=== PATIENT | female | born 1975 | race Caucasian/White ===

== ENCOUNTER 2017-06-20 12:16 | Emergency (ER) | payer OTHER ==
[~2017-06-20] VITALS: Ht 177.8 cm; Wt 59.0 kg
[~2017-06-20 12:16] MED LIST: APAP500 PO; BENADRYL25 MG PO; CARISOPRODOL 3350 MG PO; CIPROFLOXACIN500 M1 PO; CLEOCIN HCL150 MG PO; CLINDAMYCIN; COLACE100 MG PO; DARVOCET-N 1001 EAC1 PO; DILAUDID 4 MG TA4 M1 PO; ELMIRON; ELMIRON 100 MG PO; ELMIRON PO; FLUOXETINE HCL40 MG PO; HYCET 7.5 MG-3473 ML PO; IMIPRAMINE HCL25 MG PO; LORTAB 5 MG/5001 TA1 PO; MEDROL DOSPAK21 TAB PO; MIRALAX255 GM PO; MULTIPLE VITAM1 EAC3 PO; NORCO 5-325 TA1 EACH PO; OXYCODONE HCL 55 MG PO; OXYCONTIN CR 1010 M1 PO; PERCOCET 5-3251 EACH PO; PERCOCET 7.5-31 EACH PO; PHENERGAN 25 MG25 M1 PO; PREDNISONE 20 M20 MG PO; PREDNISONE50 MG PO; PROZAC20 MG; SENNA LAXATIVE25 MG PO; TRAMADOL 50 MG50 MG PO; VALIUM5 MG PO; VISTARIL 25 MG25 M1 OR; ZANTAC150 M2 PO; ZOFRAN ODT4 MG PO; [UNRECOGNIZED DRUG - OTHER] PO
[2017-06-20 14:55] VITALS: BP 125/47
== END 2017-06-20 14:56 | disposition home or self-care (01) ==
LOC: ER 12:16
DX: S03.00XA Dislocation of jaw, unspecified side, initial encounter (principal); Z88.5 Allergy status to narcotic agent; Z88.0 Allergy status to penicillin; G03.9 Meningitis, unspecified; Z88.6 Allergy status to analgesic agent; Z90.710 Acquired absence of both cervix and uterus; X50.0XXA Overexertion from strenuous movement or load, initial encounter; X50.3XXA Overexertion from repetitive movements, initial encounter; Y93.89 Activity, other specified; Y92.89 Other specified places as the place of occurrence of the external cause; Y99.8 Other external cause status

== ENCOUNTER 2017-07-01 16:56 | Emergency (ER) | payer OTHER ==
[~2017-07-01] VITALS: Ht 177.8 cm; Wt 54.4 kg
[2017-07-01] MEDS ORDERED: CLONIDINE0.1 PO (19:11)
[2017-07-01 19:51] VITALS: BP 144/87
[2017-07-01] MEDS ORDERED: MELATONIN1 MG PO (19:59)
== END 2017-07-01 19:54 | disposition home or self-care (01) ==
LOC: ER 16:56
DX: R68.84 Jaw pain (principal); Z90.710 Acquired absence of both cervix and uterus; Z90.49 Acquired absence of other specified parts of digestive tract; Z88.6 Allergy status to analgesic agent; Z88.5 Allergy status to narcotic agent; Z88.0 Allergy status to penicillin; Z88.8 Allergy status to other drugs, medicaments and biological substances